=== PATIENT | female | born 1970 | race Caucasian/White ===

== ENCOUNTER 2017-08-13 14:06 | Emergency (ER) | payer OTHER, SELFPAY ==
[2017-08-13 14:18] VITALS: BP 125/69; PULSE 105; RESP 18; TEMP 36.6; O2SAT 98; BMI 23.8
[2017-08-13 14:39] LABS: UTC Influenza A Antigen Negative (Negative); UTC Influenza B Antigen Negative (Negative)
--- NOTE | 2017-08-13 14:55 | HMH.EDUTC ---
[facility] [place] Disposition Clinical Impression: Cough Fever Qualifiers: Fever type: unspecified Qualified Code(s): R50.9 - Fever, unspecified Disposition: Home, Self-Care Condition on Discharge: Good Instructions: DI for Cough -- Adult, DI for Fever (Symptom) -- Adult Additional Instructions: * Your symptoms are concerning to me. As we discussed, you could have developed the flu on top of a cold and too soon therefore false negative but with cold symptoms x 1week and suddenly worse symptoms, we worry about infection. Although there is no obvious sign of infection, we discussed it and you are more comfortable with an antibiotic now. You agree to follow up immediately for new or worsening symptoms AND in 48 hours if no noticeable improvement. You are welcome to return tomorrow for a repeat flu test if you would like. augmentin can cause GI side effects. Probiotics help prevent these symptoms. * Monitor Temp. Tylenol every 4 hours as needed no more then 5 times a day or 4000mg in 24 hours and/or ibuprofen every 6 hours as needed no more then 3200mg in 24 hours (as long as your primary care doctor has told you that it is ok to take both) for fever/aches/pain. ER if fever no less than 101 despite tylenol and ibuprofen * Encourage fluids, water, gatorade, powerade, pedialyte if /toddler/child * warm salt water gargles * warm fluids * sore throat lozenges * sleep elevated * humidifier/vaporizer * * Your throat swab was sent for culture. Those results are typically sent to your primary care. Be sure to follow up in 2-3 days if no improvement so they can review those results and treat if necessary. If you don't have primary care, I recommend you get one but in the mean time, you will have to return to a walk in clinic. Prescriptions: Amoxicillin/Potassium Clav [Augmentin 875-125 Tablet] 1 tab PO Q12H #20 tab Referrals: Lázaro Escobar MD [Primary Care Provider] - Time of Disposition: 16:44 Medical Decision Making Vital Signs: 08/13/17 14:18 08/13/17 15:07 Temperature 98 F 100.8 F H Temperature Source Temporal Artery Scan Temporal Artery Scan Pulse Rate [Brachial] 105 H Respiratory Rate 18 Blood Pressure [Left Arm] 125/69 Blood Pressure Mean [Left Arm] 87 Blood Pressure Source [Left Arm] Automatic Cuff Blood Pressure Position [Left Arm] Sitting 02 Sat by Pulse Oximetry 98 Oxygen Delivery Method Room Air - Lab Data Lab Results 08/13/17 14:29: Influenza Type A Ag Negative, Influenza Type B Ag Negative 08/13/17 15:12: WBC 6.6, RBC 5.44 H, Hgb 15.4, Hct 47.6 H, MCV 87.5, MCH 28.2, MCHC 32.3, RDW 13.4, Plt Count 232, MPV 8.3, Neut % (Auto) 66.0, Lymph % (Auto) 25.0, [place] % (Auto) 7.3, Eos % (Auto) 1.0, Baso % (Auto) 0.7, Neut # (Auto) 4.4, Lymph # (Auto) 1.7, Bent # (Auto) 0.5, Eos # (Auto) 0.1, Baso # (Auto) 0.1 08/13/17 15:12: Sodium 136, Potassium 4.2, Chloride 100, Carbon Dioxide 31, Anion Gap 9.2, BUN 12, Creatinine 0.95, Estimated Creat Clear 67, Estimated GFR > 60, Est GFR ( Amer) > 60, Glucose 101 08/13/17 15:12: Lactic Acid 0.9 08/13/17 15:13: Strep Scn [facility] Result diagrams: 08/13/17 15:12 08/13/17 15:12 Orders (Tests/Meds): ED MEDICATIONS Discontinued Medications Generic Name Dose Route Start Last Admin Trade Name Lee PRN Reason Stop Dose Admin Ibuprofen 800 mg 08/13/17 15:03 08/13/17 15:06 Motrin 400mg Tablet PO 08/13/17 15:04 800 mg ONCE ONE Administration ORDERS Category Date Time Status CXR 2 view (NOT portable) [XR chest 2V] Stat Exams 08/13/17 15:04 Taken Strep Screen Confirmation Stat Micro 08/13/17 15:13 Received - Radiology Data #1 Image(s): Chest Image Reviewed: Yes I reviewed the patient's radiology results, Yes I discussed the image results w/the radiologist Preliminary Findings: Normal/NAD Discussed with Dr. Bass. No acute findings - Meet Inquiry Pt receiving controlled substance: No - Reevaluation(s) Time: 15:
--- NOTE | 2017-08-13 15:03 | ED_ITS ---
[facility] [place] Disposition Clinical Impression: Cough Fever Qualifiers: Fever type: unspecified Qualified Code(s): R50.9 - Fever, unspecified Disposition: Home, Self-Care Condition on Discharge: Good Instructions: DI for Cough -- Adult, DI for Fever (Symptom) -- Adult Additional Instructions: * Your symptoms are concerning to me. As we discussed, you could have developed the flu on top of a cold and too soon therefore false negative but with cold symptoms x 1week and suddenly worse symptoms, we worry about infection. Although there is no obvious sign of infection, we discussed it and you are more comfortable with an antibiotic now. You agree to follow up immediately for new or worsening symptoms AND in 48 hours if no noticeable improvement. You are welcome to return tomorrow for a repeat flu test if you would like. augmentin can cause GI side effects. Probiotics help prevent these symptoms. * Monitor Temp. Tylenol every 4 hours as needed no more then 5 times a day or 4000mg in 24 hours and/or ibuprofen every 6 hours as needed no more then 3200mg in 24 hours (as long as your primary care doctor has told you that it is ok to take both) for fever/aches/pain. ER if fever no less than 101 despite tylenol and ibuprofen * Encourage fluids, water, gatorade, powerade, pedialyte if /toddler/ child * warm salt water gargles * warm fluids * sore throat lozenges * sleep elevated * humidifier/vaporizer * * Your throat swab was sent for culture. Those results are typically sent to your primary care. Be sure to follow up in 2-3 days if no improvement so they can review those results and treat if necessary. If you don't have primary care , I recommend you get one but in the mean time, you will have to return to a walk in clinic. Prescriptions: Amoxicillin/Potassium Clav [Augmentin 875-125 Tablet] 1 tab PO Q12H #20 tab Referrals: Lázaro Escobar MD [Primary Care Provider] - Time of Disposition: 16:44 Medical Decision Making Vital Signs: 08/13/17 14:18 08/13/17 15:07 Temperature 98 F 100.8 F H Temperature Source Temporal Artery Scan Temporal Artery Scan Pulse Rate [Brachial] 105 H Respiratory Rate 18 Blood Pressure [Left Arm] 125/69 Blood Pressure Mean [Left Arm] 87 Blood Pressure Source [Left Arm] Automatic Cuff Blood Pressure Position [Left Arm] Sitting 02 Sat by Pulse Oximetry 98 Oxygen Delivery Method Room Air - Lab Data Lab Results 08/13/17 14:29: Influenza Type A Ag Negative, Influenza Type B Ag Negative 08/13/17 15:12: WBC 6.6, RBC 5.44 H, Hgb 15.4, Hct 47.6 H, MCV 87.5, MCH 28.2, MCHC 32.3, RDW 13.4, Plt Count 232, MPV 8.3, Neut % (Auto) 66.0, Lymph % (Auto) 25.0, [place] % (Auto) 7.3, Eos % (Auto) 1.0, Baso % (Auto) 0.7, Neut # (Auto) 4.4 , Lymph # (Auto) 1.7, [place] # (Auto) 0.5, Eos # (Auto) 0.1, Baso # (Auto) 0.1 08/13/17 15:12: Sodium 136, Potassium 4.2, Chloride 100, Carbon Dioxide 31, Anion Gap 9.2, BUN 12, Creatinine 0.95, Estimated Creat Clear 67, Estimated GFR > 60, Est GFR ( Amer) > 60, Glucose 101 08/13/17 15:12: Lactic Acid 0.9 08/13/17 15:13: Strep Scn [facility] Result diagrams: 08/13/17 15:12 08/13/17 15:12 Orders (Tests/Meds): ED MEDICATIONS Discontinued Medications Generic Name Dose Route Start Last Admin Trade Name Lee PRN Reason Stop Dose Admin Ibuprofen 800 mg 08/13/17 15:03 08/13/17 15:06 Motrin 400mg Tablet PO 08/13/17 15:04 800 mg ONCE ONE Administration
--- NOTE | 2017-08-13 15:04 | XR_ITS ---
XR chest 2V HISTORY: Cough, weakness, fatigue ITS.REASON: nonprod [id number], worse 1/4, prod w/ fever, aches ORDERING PHYSICIAN: Bela Ruano PATIENT AGE: 47 years COMPARISON: None available FINDINGS: The cardiomediastinal silhouette and pulmonary vascularity are within normal limits. The lungs are clear without infiltrates, suspicious nodules, or pleural effusions. No acute bony abnormalities. IMPRESSION: Negative chest, no acute finding
[2017-08-13 15:07] VITALS: TEMP 38.2
[2017-08-13 15:22] LABS: Basophils # 0.1 K/mm3 (0-0.2); Basophils % 0.7 % (0.1-2.0); Eosinophils # 0.1 K/mm3 (0.0-0.4); Hematocrit 47.6 % (37.0-47.0); Hemoglobin 15.4 g/dL (12.2-16.2); Lymphocytes # 1.7 K/mm3 (0.7-4.5); Mean Corpuscular HGB Conc 32.3 g/dL (31.8-35.4); Mean Corpuscular Hemoglobin 28.2 pg (27.0-31.2); Mean Corpuscular Volume 87.5 fl (81-99); Mean Platelet Volume 8.3 fl (7.4-10.4); Monocytes # 0.5 K/mm3 (0.1-1.0); Monocytes % 7.3 % (1.7-9.3); Neutrophils # 4.4 K/mm3 (1.8-7.8); Platelet Count 232 K/mm3 (142-424); Red Blood Count 5.44 M/mm3 (4.20-5.40); Red Cell Distribution Width 13.4 % (11.5-17.5); White Blood Count 6.6 K/mm3 (4.8-10.8)
[2017-08-13 15:27] LABS: Anion Gap 9.2 mEq/L (5-15); Blood Urea Nitrogen 12 mg/dL (7-18); Carbon Dioxide 31 mmol/L (21.0-32.0); Chloride 100 mmol/L (98-107); Creatinine Clearance Estimated 67 mg/ml (0-300); Creatinine,Serum 0.95 mg/dL (0.55-1.02); Estimated Glomerular Filt Rate > 60 ml/min (>60); GFR (African American) > 60 ML/MIN (>60); Glucose 101 mg/dL (74-106); Potassium 4.2 mmoL/L (3.5-5.1); Sodium 136 mmol/L (136-145)
[2017-08-13 15:36] LABS: Lactic Acid 0.9 mmol/L (0.4-2.0)
== END 2017-08-13 16:48 | disposition home or self-care (01) ==
PROVIDERS: Emergency Provider Nurse Practitioner Family; PCP Internal Medicine Adolescent Medicine
DX: R05 Cough (principal); R50.9 Fever, unspecified; Z79.899 Other long term (current) drug therapy
CPT/HCPCS: 36415; 71046; 80048; 83605; 85025; 87276; 87430; 87804; 99202; 99282; 99291

== ENCOUNTER → 2018-05-26 12:04 | Outpatient (CLI) | payer OTHER, SELFPAY ==
[2018-05-26 12:28] LABS: Basophils # 0.1 K/mm3 (0-0.2); Eosinophils # 0.2 K/mm3 (0.0-0.4); Hematocrit 44.3 % (37.0-47.0); Hemoglobin 14.6 g/dL (12.2-16.2); Lymphocytes % 37.8 K/mm3 (10-50); Mean Corpuscular Volume 87.8 fl (81-99); Mean Platelet Volume 7.9 fl (7.4-10.4); Monocytes # 0.4 K/mm3 (0.1-1.0); Monocytes % 4.8 % (1.7-9.3); Neutrophils # 4.3 K/mm3 (1.8-7.8); Neutrophils % 54.4 % (37.0-80.0); Platelet Count 308 K/mm3 (142-424); Red Blood Count 5.04 M/mm3 (4.20-5.40); Red Cell Distribution Width 13.1 % (11.5-17.5); White Blood Count 7.9 K/mm3 (4.8-10.8)
[2018-05-26 13:29] LABS: CKMB Relative Index 0.8 U/L (0-4.0); Creatine Kinase 87 U/L (26-192); Creatine Kinase MB 0.7 ng/ml (0.0-3.6); Thyroid Stimulating Hormone 0.89 uIU/ml (0.358-3.740); Troponin I < 0.02 ng/ml (0.00-0.06)
[2018-05-26 14:40] LABS: D-Dimer < 100 ng/mL (0-400)
== END ==
PROVIDERS: PCP Nurse Practitioner Family; Visit Provider Nurse Practitioner Family
DX: R07.89 Other chest pain (principal); R06.02 Shortness of breath; M94.0 Chondrocostal junction syndrome [Tietze]
CPT/HCPCS: 36415; 82550; 82553; 84443; 84484; 85025; 85378

== ENCOUNTER → 2018-06-08 08:16 | Outpatient (CLI) | payer OTHER, SELFPAY ==
--- NOTE | 2018-06-08 08:18 | MM_ITS ---
MM Dig screening mamm BI w/CAD CAD Screening COMPARISON: Digital mammograms with CAD 05/05/2017 and 07/10/2015 INDICATION: There is a history of breast cancer patient maternal great-grandmother. There is been previous biopsy right breast for benign disease. TECHNIQUE: Standard CC and MLO images were obtained. R2 CAD reviewed. FINDINGS: Again noted is a diffusely dense and heterogenic parenchymal pattern lessening the sensitivity of mammography. There are multiple scattered microcalcifications right breast most typical of sclerosing adenosis. There is a biopsy clip central portion right breast. There are few benign-appearing calcifications left breast. There is no suspicious lesion and there are no suspicious microcalcifications. IMPRESSION: Diffusely dense parenchymal pattern with no suspicious lesion seen BI-RADS Category: 2 Benign Finding(s) RECOMMENDED FOLLOW-UP: 1YR - 1 YEAR FOLLOW-UP (A letter has been sent to the patient regarding results of the study.)
== END ==
PROVIDERS: PCP Nurse Practitioner Family; Visit Provider Nurse Practitioner Obstetrics & Gynecology
DX: Z12.31 Encounter for screening mammogram for malignant neoplasm of breast (principal)
CPT/HCPCS: 77067